=== PATIENT | male | born 2000 | race Caucasian/White ===

== ENCOUNTER 2024-08-29 16:26 | Emergency (ER) | payer OTHER, SELFPAY ==
[2024-08-29 16:36] VITALS: BP 156/90
[2024-08-29] MEDS: MOTRIN 600 MG PO (17:35)
--- NOTE | 2024-08-29 18:26 | ED.GENMED ---
History of Present Illness
General
Chief Complaint: Back Pain
Source: patient
Exam Limitations: none
Time Seen by Provider: 08/29/24 17:18
Nursing documentation reviewed up to this point in time: agreed with
History of Present Illness
History of Present Illness:
Patient states he developed low back pain approx 1 mos ago while working out.. Pain resolved over time. Today he was playing with clients dog and pain returned. Pain does not radiate. No weakness in extremities, no bowel or bladder issues, no
saddle paresthesia. Brought self to ED for eval
Past History
Past History
ED Past Medical History: None
ED Past Surgical History: None
Social History
Tobacco: Non-smoker
Alcohol: None
Review of Systems
Review of Systems
Allergies reviewed?: Yes
All Other Systems: ROS reviewed and negative except as documented in HPI and ROS
Constitutional: Reports no symptoms
EENT: Reports no symptoms
Respiratory: Reports no symptoms
Cardiac: Reports no symptoms
ABD/GI: Reports no symptoms
: Reports no symptoms
Musculoskeletal: Reports back pain (Low back pain)
Skin: Reports no symptoms
Neurological: Reports no symptoms
Psychiatric: Reports no symptoms
Phy Exam
General Physical Exam
General Presentation: well appearing and no apparent distress
General age: appears stated age
General Skin: warm and dry
General Habitus: normal
Reflexes
Reflexes: +3: Left patellar and +3: Right patellar
Musculoskeletal Exam
Musculoskeletal Exam: neuro vasc intact
Skin Exam
Skin Exam: normal color, warm/dry and no rash
Psychiatric Exam
Psychiatric Exam: normal mood/affect
Course
Orders/Labs/Results
Orders:
Orders
08/29/24 17:30
Ibuprofen [Motrin] 600 mg PO NOW STA
Lumbar Spine Complete, 4 View [CR Lumbar Spine Comp Min 4 Vw*] Urgent
Comment:
Reason For Exam: pain
Vital Signs
Initial and Last Documented VS:
Initial Vital Signs
Temp Pulse Resp BP Pulse Ox
98.5 F 68 18 156/90 98
08/29/24 16:36 08/29/24 16:36 08/29/24 16:36 08/29/24 16:36 08/29/24 16:36
Last Documented Vital Signs
Temp Pulse Resp BP Pulse Ox
98.5 F 68 18 156/90 98
08/29/24 16:36 08/29/24 16:36 08/29/24 16:36 08/29/24 16:36 08/29/24 16:36
*Radiology
Radiology exam reviewed: radiology read reviewed
*Pulse Oximetry
Patient hypoxic: no
*Critical Care Note
Total Time (30-74mins, 75-104mins- exclusive of procedures): Not Applicable
ED Attending Note
-
Portions of this chart may have been created with voice recognition software.� Occasional wrong word or��sound alike� substitutions may have occurred due to the inherent limitations of voice recognition software.
Discharge Plan
Departure
Patient Disposition: Home (Routine Discharge)
Date of Disposition: 08/29/24
Time of Disposition: 18:09
Patient with high blood pressure during this ER visit?: No
Condition: Good
Covid-19: Not Applicable
Discharge Problem:
Low back pain
Instructions: Low Back Pain (DC), Using Cold for Pain, Ibuprofen
Prescriptions:
New
cyclobenzaprine 10 mg tablet
10 mg PO HS PRN (Reason: muscle spasms) Qty: 10 0RF
No Action
amoxicillin-pot clavulanate 1 TABLET tablet
1 tab PO Q12 Qty: 14 0RF
Referrals:
iTna Flowers PA-C [Family Provider] - Follow up in 2-3 days
Interventions
Interventions:
*Risk Screen - Suicide Last Done: 08/29/24 16:36
*General Assessment Last Done: 08/29/24 16:36
*Neglect/Abuse Screening Last Done: 08/29/24 16:36
*ED- Fall Risk Assessment Last Done: 08/29/24 16:36
*ED COVID-19 Vaccine History Last Done: 08/29/24 16:36
*Nursing Disposition Last Done: 08/29/24 18:26
ED-Musculoskeletal Assessment Last Done: 08/29/24 17:50
Discharge Date and Time
Print Language: [place]ESE
Musculoskeletal Injury Exam
Musculoskeletal Injury Exam
Lower Back:
Pain with Movement?: Moderate
Tender to palpation?: Moderate
Soft tissue swelling?: None
External deformity and angulation?: None
Joint effusion?: None
Contusion?: None
Strain- Sprain- Tear (Connective tissue injury)?: Moderate
Crepitus with movement?: No
Joint instability?: No
Malalignment/deformity?: No
Range of motion: Limited
Distal skin color and temperature: normal-warm & good color
Capillary Refill: normal
Normal distal neurovascular exam?: Yes
== END 2024-08-29 18:27 | disposition home or self-care (01) ==
LOC: EMR 16:26
PROVIDERS: EMERGENCY PHYSICIAN Student in an Organized Health Care Education/Training Program; FAMILY PHYSICIAN Physician Assistant Medical
DX: M54.50 Low back pain, unspecified (principal)
CPT/HCPCS: 99283; 72110